=== PATIENT | female | born 1955 | race Caucasian/White ===

== ENCOUNTER → 2016-09-13 | Outpatient (CLI) | payer OTHER | LOC: HEART 5 08:53 | DX: R00.2 Palpitations (principal); I51.9 Heart disease, unspecified; I34.8 Other nonrheumatic mitral valve disorders | CPT/HCPCS: 93306 ==

== ENCOUNTER 2020-09-02 21:08 | Emergency (ER) | payer OTHER ==
[2020-09-02 21:38] LABS: HEMOGLOBIN 14.2 gm/dl (12.3-15.3); RED BLOOD COUNT 4.51 M/UL (4.00-5.10); WHITE BLOOD COUNT 10.2 K/UL (4.5-11.0)
[2020-09-02 21:52] LABS: BUN/CREATININE RATIO 24 (0-10)
[2020-09-02] MEDS ORDERED: ZOFRAN ODT 4 MG4 MG SL (23:51)
[2020-09-02] MEDS ORDERED: HYDROCODON-ACE1 EAC4 PO (23:51)
== END 2020-09-03 00:10 | disposition home or self-care (01) ==
LOC: ER1 21:08
PROVIDERS: Emergency Medicine
DX: K85.90 Acute pancreatitis without necrosis or infection, unspecified (principal); Z88.5 Allergy status to narcotic agent
CPT/HCPCS: 71045; 80053; 82550; 82553; 83690; 83874; 83880; 84484; 85025; 85610; 85730; 96374; 96375; 99284; J2270; J2405; Q9967

== ENCOUNTER → 2020-09-27 | Outpatient (CLI) | payer OTHER ==
[~2020-09-27] MED LIST: HYDROCODON-ACE1 EAC4 PO; ZOFRAN ODT 4 MG4 MG SL
== END ==
LOC: MRI 09-12 15:00
DX: K85.00 Idiopathic acute pancreatitis without necrosis or infection (principal)
CPT/HCPCS: 74181